=== PATIENT | female | born 1940 | race Caucasian/White ===

== ENCOUNTER 2019-01-03 13:31 | Emergency (ER) | payer OTHER ==
[~2019-01-03] VITALS: Ht 154.9 cm; Wt 66.2 kg
[~2019-01-03 13:31] MED LIST: ALTACE5 MG PO; ASPIR 8181 MG PO; CIPRO500 MG PO; HCTZ PO; SIMVASTATIN40 MG PO; TRAM1TAB98 PO
[2019-01-03] MEDS ORDERED: ALTACE5 MG (14:06)
[2019-01-03] MEDS ORDERED: VITAMIN D-32000 UNIT (14:06)
[2019-01-03] MEDS ORDERED: NORFLEX100MG (14:07)
== END 2019-01-03 16:31 | disposition home or self-care (01) ==
LOC: ER 13:31
DX: M62.830 Muscle spasm of back (principal)

== ENCOUNTER 2019-07-27 15:28 | Outpatient (CLI) | payer OTHER ==
[~2019-07-27 15:28] MED LIST changes: +ALTACE5 MG; +NORFLEX100MG; +VITAMIN D-32000 UNIT
== END 2019-07-27 15:30 | disposition home or self-care (01) ==
LOC: LAB 15:28
DX: R10.84 Generalized abdominal pain (principal)

== ENCOUNTER 2019-08-10 10:14 | Outpatient (CLI) | payer OTHER | END 2019-08-10 15:47 | disposition home or self-care (01) | LOC: RAD 10:14 | DX: J21.8 Acute bronchiolitis due to other specified organisms (principal); R10.84 Generalized abdominal pain ==

== ENCOUNTER 2019-09-14 13:52 | Emergency (ER) | payer OTHER ==
[~2019-09-14] VITALS: Ht 154.9 cm; Wt 59.0 kg
== END 2019-09-14 18:06 | disposition home or self-care (01) ==
LOC: ER 13:52
DX: R10.13 Epigastric pain (principal); N39.0 Urinary tract infection, site not specified

== ENCOUNTER 2019-10-19 10:10 | Emergency (ER) | payer OTHER ==
[~2019-10-19] VITALS: Ht 157.5 cm; Wt 65.8 kg
[2019-10-19] MEDS ORDERED: PEPCID AC20 MG PO (10:42)
[2019-10-19] MEDS ORDERED: CRESTOR20 MG (10:42)
[2019-10-19] MEDS ORDERED: DICY20TA PO (15:50)
[2019-10-19] MEDS ORDERED: PROTONIX40 MG PO (15:50)
== END 2019-10-19 16:06 | disposition home or self-care (01) ==
LOC: ER 10:10
DX: K57.90 Diverticulosis of intestine, part unspecified, without perforation or abscess without bleeding (principal); K29.70 Gastritis, unspecified, without bleeding

== ENCOUNTER 2019-10-29 11:13 | Emergency (ER) | payer OTHER ==
[~2019-10-29] VITALS: Ht 160 cm; Wt 81.2 kg
[~2019-10-29 11:13] MED LIST changes: +CRESTOR20 MG; +DICY20TA PO; +PEPCID AC20 MG PO; +PROTONIX40 MG PO
[2019-10-29] MEDS ORDERED: SEROQUEL50 MG PO (11:38)
== END 2019-10-29 17:53 | disposition home or self-care (01) ==
LOC: ER 11:13
DX: S60.211A Contusion of right wrist, initial encounter (principal); S70.02XA Contusion of left hip, initial encounter; W06.XXXA Fall from bed, initial encounter; Y93.89 Activity, other specified; Y92.092 Bedroom in other non-institutional residence as the place of occurrence of the external cause; Y99.8 Other external cause status

== ENCOUNTER 2019-10-31 13:22 | Inpatient (IN) | payer OTHER ==
[~2019-10-31] VITALS: Ht 157.5 cm; Wt 61.2 kg
[~2019-10-31 13:22] MED LIST changes: +SEROQUEL50 MG PO
== END 2019-11-10 18:00 | disposition home or self-care (01) | DRG 64 ==
LOC: ER 13:22 → SEC-K 19:45 → MEDJ 21:03 → MEDI 11-04 07:44 → MEDJ 11-05 10:58
PROVIDERS: ADMIT Internal Medicine Cardiovascular Disease
PROC: BW28ZZZ Computerized Tomography (CT Scan) of Head (ICD-10-PCS; 2019-10-31)
PROC: B246ZZZ Ultrasonography of Right and Left Heart (ICD-10-PCS; 2019-10-31)
PROC: B345ZZZ Ultrasonography of Bilateral Common Carotid Arteries (ICD-10-PCS; 2019-10-31)
PROC: 4A033R1 Measurement of Arterial Saturation, Peripheral, Percutaneous Approach (ICD-10-PCS; 2019-10-31)
PROC: 0T9B70Z Drainage of Bladder with Drainage Device, Via Natural or Artificial Opening (ICD-10-PCS; 2019-10-31)
PROC: B030ZZZ Magnetic Resonance Imaging (MRI) of Brain (ICD-10-PCS; principal; 2019-11-01)
PROC: 0DH67UZ Insertion of Feeding Device into Stomach, Via Natural or Artificial Opening (ICD-10-PCS; 2019-11-07)
PROC: 3E0G76Z Introduction of Nutritional Substance into Upper GI, Via Natural or Artificial Opening (ICD-10-PCS; 2019-11-07)
DX: I63.541 Cerebral infarction due to unspecified occlusion or stenosis of right cerebellar artery (principal); I50.31 Acute diastolic (congestive) heart failure; I63.211 Cerebral infarction due to unspecified occlusion or stenosis of right vertebral artery; K85.80 Other acute pancreatitis without necrosis or infection; I31.3 Pericardial effusion (noninflammatory); F05 Delirium due to known physiological condition; E44.0 Moderate protein-calorie malnutrition; I11.0 Hypertensive heart disease with heart failure; I08.0 Rheumatic disorders of both mitral and aortic valves; I67.82 Cerebral ischemia; R29.702 NIHSS score 2; R47.1 Dysarthria and anarthria; G31.89 Other specified degenerative diseases of nervous system; F02.80 Dementia in other diseases classified elsewhere, unspecified severity, without behavioral disturbance, psychotic disturbance, mood disturbance, and anxiety; R55 Syncope and collapse; N39.8 Other specified disorders of urinary system
CPT/HCPCS: 70544